=== PATIENT | female | born 1990 | race Caucasian/White ===

== ENCOUNTER 2019-02-18 19:06 | Emergency (ER) | payer OTHER, BC ==
[~2019-02-18] VITALS: Ht 160 cm; Wt 61.4 kg
[2019-02-18 19:23] VITALS: Ht 160 cm; Wt 61.4 kg
[2019-02-18] MEDS ORDERED: ONDANSETRON (ODT) 4 MG TAB ODT STA (20:29)
[2019-02-18] MEDS ORDERED: ACETAMINOPHEN 325 MG TAB PO ONE (20:30)
[2019-02-18] MEDS ORDERED: IBUP-1561 PO (21:47)
[2019-02-18] MEDS ORDERED: BUTA1CAP38 PO (21:47)
[2019-02-18] MEDS ORDERED: ONDA8TAB14 PO (21:49)
--- NOTE | 2019-02-18 21:51 | ERD ---
ER Documentation Chief Complaint Chief Complaint headache left sided 02/17 with nausea/dizziness no other neurodeficits note HPI 28-year-old female presents with a left-sided headache since yesterday with nausea and sensation of dizziness. She denies any weakness or deficits. She also has movement of the pain to the right sabianism today. She denies history of migraines or headaches. She is having pain described Excedrin Migraine. She denies bowel or bladder incontinence, weakness, deficits, saddle anesthesia, urinary complaints, fevers, cough, shortness of breath or chest pain. ROS All systems reviewed and are negative except as per history of present illness. Medications Home Meds Active Scripts Ondansetron (Ondansetron Odt) 8 Mg Tab.rapdis, 8 MG PO Q6H PRN for NAUSEA AND/OR VOMITING, #6 TAB Prov:SCOTT GRANDE MD 02/18/19 Ibuprofen* (Motrin*) 400 Mg Tab, 400 MG PO Q6, #20 TAB Prov:SCOTT GRANDE MD 02/18/19 Dlglgwvrdo-Rhqnsysfejdoc-Xxutzesj* (Fioricet*) 50-300-40 Mg Capsule, 1 CAP PO Q4H PRN for PAIN, #15 CAP Prov:SCOTT GRANDE MD 02/18/19 Allergies Allergies: Coded Allergies: Penicillins (Verified Allergy, Mild, 02/18/19) ciprofloxacin (Verified Allergy, Mild, 02/18/19) PMhx/Soc Medical and Surgical Hx: pt denies Medical Hx, pt denies Surgical Hx History of Surgery: No Anesthesia Reaction: No Hx Neurological Disorder: No Hx Respiratory Disorders: No Hx Cardiac Disorders: No Hx Psychiatric Problems: No Hx Miscellaneous Medical Probl: No Hx Alcohol Use: No Hx Substance Use: No Hx Tobacco Use: No Smoking Status: Never smoker FmHx Family History: No diabetes, No coronary disease, No other Physical Exam Vitals Vital Signs Date Temp Pulse Resp B/P (MAP) Pulse Ox O2 O2 Flow FiO2 Time Delivery Rate 02/18/19 97.2 68 20 130/66 98 19:23 (87) Physical Exam Const: No acute distress Head: Atraumatic Eyes: Normal Conjunctiva ENT: Normal External Ears, Nose and Mouth. Neck: Full range of motion. No meningismus. Resp: Clear to auscultation bilaterally Cardio: Regular rate and rhythm, no murmurs Abd: Soft, non tender, non distended. Normal bowel sounds Skin: No petechiae or rashes Back: No midline or flank tenderness Ext: No cyanosis, or edema Neur: Awake and alert. Normal gait. No appreciable focal neurologic deficits. No pronator drift or cerebellar signs. Negative Romberg. Psych: Normal Mood and Affect Results 24 hrs Laboratory Tests Test 02/18/19 20:36 02/18/19 20:37 POC Beta HCG, Qualitative NEGATIVE Bedside Urine pH (LAB) 6.0 Bedside Urine Protein (LAB) Negative Bedside Urine Glucose (UA) Negative Bedside Urine Ketones (LAB) Negative Bedside Urine Blood 1+ Bedside Urine Nitrite (LAB) Negative Bedside Urine Leukocyte Esterase (L Trace Current Medications Medications Dose Sig/Cyndee Start Time Status Last (Trade) Ordered Route PRN Stop Time Admin Dose Reason Admin 650 mg ONCE ONCE 02/18/19 DC 02/18/19 Acetaminophen PO 20:30 20:42 (Tylenol 02/18/19 20:31 Tab) Ondansetron 8 mg ONCE STAT 02/18/19 DC 02/18/19 HCl (Zofran ODT 20:29 20:41 Odt) 02/18/19 20:30 Ketorolac 30 mg ONCE STAT 02/18/19 DC Tromethamine IM 22:09 (Toradol) 02/18/19 22:10 Procedures/MDM Patient was given Tylenol and Zofran. Patient presents with a left-sided hea dache of uncertain etiology despite Tylenol. CT brain shows no acute abnormalities. Urine shows no significant acute abnormalities and hCG negative. Patient may be having a migraine type headache. Patient given Toradol 30 mg IM. She has no signs of bleeding, fracture, signs of meningitis, neurologic stiffness, additional concerning signs or symptoms. Will treat with Fioricet, Zofran, ibuprofen, recommendations for fluids, rest, primary care followed up and return precautions. The patient was stable with no new complaints during the ER course. Clinically, there is no current evidence to suggest meningitis, sepsis, acute abdomen, pneumonia, stroke, acute coronary syndrome, pulmonary embolism, aortic dissection or any other emergent condition appearing to require further evaluation or hospitalization. Patient counseled regarding my diagnostic impression and care plan. Prior to discharge all questions answered. Pt agrees with treatment plan and understands strict return precautions. Pt is instructed to follow up with primary care provider within 24-48 hours. Precautionary instructions provided including instructions to return to the ER if not improving or for any worsening or changing symptoms or concerns. Disclaimer: Inadvertent spelling and grammatical errors are likely due to EHR/dictation software use and do not reflect on the overall quality of patient care. Also, please note that the electronic time recorded on this note does not necessarily reflect the actual time of the patient encounter. Departure Diagnosis: Primary Impression: Headache Headache type: unspecified Headache chronicity pattern: unspecified pattern Intractability: not intractable Qualified Codes: R51 - Headache Condition: Stable Patient Instructions: Headache, Unspecified Referrals: DOCTOR,NOT ON STAFF (PCP) Additional Instructions: CT read as normal. Recheck for new or worsening symptoms with primary care doctor. Plenty of fluids at home. SCOTT GRANDE MD February 18, 2019 21:51
[2019-02-18] MEDS ORDERED: KETOROLAC 30 MG INJ IM STA (22:09)
[2019-02-18 22:20] VITALS: BP 113/79; PULSE 78; RESP 20
== END 2019-02-18 22:30 | disposition home or self-care (01) ==
LOC: FTE 19:06
DX: R51 Headache (principal); R11.0 Nausea
CPT/HCPCS: 70450; 81003; 81025; J1885; 96372